=== PATIENT | male | born 1940 | race Caucasian/White ===

== ENCOUNTER 2018-09-09 19:45 | Inpatient (IN) | payer MEDICARE ==
[~2018-09-09] VITALS: Ht 172.7 cm; Wt 75.8 kg
[~2018-09-09 19:45] MED LIST: HCTZ25T PO; LISI-600 PO; WARF5TAB76 PO
[2018-09-09 20:16] LABS: BASOPHILS % (AUTO) 0.4 % (0-1); EOSINOPHILS # (AUTO) 0.2 X10'3 (0-0.9); EOSINOPHILS % (AUTO) 2.4 % (0-6); LYMPHOCYTES # (AUTO) 1.5 X10'3 (1.1-4.8); LYMPHOCYTES % (AUTO) 22.9 % (21-51); MONOCYTES # (AUTO) 0.7 X10'3 (0-0.9); MONOCYTES % (AUTO) 10.1 % (2-12); NEUTROPHILS % (AUTO) 64.2 % (42-75)
[2018-09-09 20:25] LABS: ALANINE AMINOTRANSFERASE 25 U/L (12-78); ALBUMIN 3.7 G/DL (3.4-5.0); ALKALINE PHOSPHATASE 119 IU/L (46-116); ANION GAP 10 (8-16); ASPARTATE AMINO TRANSFERASE 29 U/L (10-37); BILIRUBIN,TOTAL 0.9 MG/DL (0.1-1.0); BLOOD UREA NITROGEN 12 MG/DL (7-18); BUN/CREATININE RATIO 14.1 (5.4-32.0); CALCIUM 9.2 MG/DL (8.5-10.1); CHLORIDE 101 MMOL/L (99-107); CREATININE 0.85 MG/DL (0.60-1.10); GLUCOSE 110 MG/DL (70-104); POTASSIUM 3.8 MMOL/L (3.5-5.1); SODIUM 139 MMOL/L (135-145); TOTAL CARBON DIOXIDE 27.9 MMOL/L (24-32); TOTAL PROTEIN 7.5 G/DL (6.4-8.2); eGFR 87 ML/MIN
[2018-09-09 20:28] LABS: INR 3.3 INR; PROTHROMBIN TIME 31.6 SECONDS (9.0-12.0)
[2018-09-09 20:29] LABS: PARTIAL THROMBOPLASTIN TIME 49 SECONDS (22-32)
[2018-09-09 20:42] LABS: HEMATOCRIT 49.2 % (42.0-52.0); HEMOGLOBIN 15.8 g/dl (14.0-17.9); MEAN CORPUSCULAR HEMOGLOBIN 29.9 PG (27.0-31.0); MEAN CORPUSCULAR HGB CONC 32.2 % (33.0-36.5); PLATELET COUNT 205 X10'3 (140-440); RED BLOOD COUNT 5.29 X10'6 (4.70-6.10)
[2018-09-09] MEDS ORDERED: aspirin 325mg tablet PO ONE (21:30)
[2018-09-09] MEDS ORDERED: WARF5TAB PO (21:50)
[2018-09-09] MEDS ORDERED: hydrALAZINE 20mg/ml inj. IV ONE (21:55)
[2018-09-10] VITALS (7 sets, daily range): BP systolic 130–155; BP diastolic 73–97
[2018-09-10] MEDS ORDERED: acetaminophen 325mg tablet PO PRN (01:00)
[2018-09-10] MEDS ORDERED: magnesium hydroxide 30ml (MOM) UD suspension PO PRN (01:00)
[2018-09-10] MEDS ORDERED: ondansetron/PF 4mg/2ml inj IV PRN (01:00)
[2018-09-10] MEDS ORDERED: mag hydrox/Alum hydrox/simeth 30ml oral suspension PO PRN (01:00)
[2018-09-10] MEDS ORDERED: LORazepam 2 mg/ml vial IV PRN ×2 (01:05→10:30)
--- NOTE | 2018-09-10 02:36 | NUR ---
lab at bedside for 6hr trop
[2018-09-10 03:05] LABS: INR 3.3 INR
--- NOTE | 2018-09-10 03:21 | NUR ---
md omalley aware of pts elevated 6hr trop - he wants the AM Norvasc given now. Verbal order put in for dose to be given now
[2018-09-10] MEDS ORDERED: amLODIPine 5mg tablet PO ONE (03:25)
--- NOTE | 2018-09-10 05:43 | NUR ---
PT HAS BEEN SLEEPING FOR APPROX PAST 2 HRS. HE REMAINS ON BEDSIDE MONITORING EQUIPMENT. NO DISTRESS NOTED. WILL CONTINUE TO MONITOR.
[2018-09-10] MEDS ORDERED: warfarin 5mg tablet PO SCH (08:00)
[2018-09-10] MEDS ORDERED: amLODIPine 5mg tablet PO SCH (08:00)
--- NOTE | 2018-09-10 08:40 | NUR ---
PT BEING SEEN BY HOSPITALIST DR. HILL AT [facility].
--- NOTE | 2018-09-10 08:49 | NUR ---
BREAKFAST TRAY SET UP FOR PT, PT CURRENTLY EATING
--- NOTE | 2018-09-10 09:39 | NUR ---
PT MOVED FROM BED 17 TO BED 6, RECEIVED REPORT FROM QUINTIN RN, HOSPITIAL SERGIO TO BE PAGED DUE TO RAISING TROPONIN 7.33
--- NOTE | 2018-09-10 09:41 | NUR ---
TROPONIN 7.33,PAGED DR. HILL.
--- NOTE | 2018-09-10 09:48 | NUR ---
RECEIVED VERAL ORDERS FROM DR MEZA FOR VIT K NOW AND PT/INR 1400, ORDERS ALREADY IN SYSTEM FROM OTHER PROVIDER, DR MEZA AT BEDSIDE FOR EVALUATION NOW.
--- NOTE | 2018-09-10 09:55 | NUR ---
DR MEZA AND SHEFALI ELASTIC ASSEMBLER AT BEDSIDE FOR EVAL NOW, VERBAL CONFIRMATION TO GIVE DOSE VIT K NOW AND WILL SPEAK WITH DAUGHTER ABOUT PLAN OTHER ORDERS TO FOLLOW AFTER SPEAKING WITH FAMILY
[2018-09-10] MEDS ORDERED: clopidogrel 300mg tablet PO ONE (10:15)
[2018-09-10] MEDS ORDERED: phytonadione inj. 5 MG in normal saline 100ml IV soln 99.5 ML IV ONE (10:15)
[2018-09-10] MEDS: isosorbide mononitrate 30mg tab.SR.24H PO SCH (10:25)
[2018-09-10] MEDS: carVEDilol 3.125mg tablet PO SCH ×3 (10:25→22:59)
[2018-09-10] MEDS: atorvastatin 20mg tablet PO SCH (10:25)
[2018-09-10] MEDS ORDERED: phytonadione inj. 10 MG in normal saline 100ml IV soln 99 ML IV ONE (10:30)
[2018-09-10] MEDS ORDERED: morphine 2 MG/ML inj. syringe IV PRN (10:45)
--- NOTE | 2018-09-10 12:36 | NUR ---
pt arrived from ER. Oriented to room, tele box applied, pt assisted to restroom. Two RN skin check complete. Pt has no wounds.
[2018-09-10 13:55] LABS: BASOPHILS % (AUTO) 0.4 % (0-1); EOSINOPHILS # (AUTO) 0.1 X10'3 (0-0.9); EOSINOPHILS % (AUTO) 1.2 % (0-6); HEMATOCRIT 45.5 % (42.0-52.0); HEMOGLOBIN 14.8 g/dl (14.0-17.9); LYMPHOCYTES # (AUTO) 0.9 X10'3 (1.1-4.8); LYMPHOCYTES % (AUTO) 12.9 % (21-51); MEAN CORPUSCULAR HEMOGLOBIN 29.9 PG (27.0-31.0); MEAN CORPUSCULAR HGB CONC 32.5 % (33.0-36.5); MONOCYTES # (AUTO) 0.6 X10'3 (0-0.9); MONOCYTES % (AUTO) 8.8 % (2-12); NEUTROPHILS # (AUTO) 5.2 X10'3 (1.8-7.7); NEUTROPHILS % (AUTO) 76.7 % (42-75); PLATELET COUNT 194 X10'3 (140-440); RED BLOOD COUNT 4.95 X10'6 (4.70-6.10); RED CELL DISTRIBUTION WIDTH 13.3 % (11.5-14.5); WHITE BLOOD COUNT 6.8 X10'3 (4.5-11.0)
[2018-09-10 13:58] LABS: INR 2.4 INR; PROTHROMBIN TIME 23.4 SECONDS (9.0-12.0)
[2018-09-10 14:00] LABS: ALANINE AMINOTRANSFERASE 26 U/L (12-78); ALBUMIN 3.4 G/DL (3.4-5.0); ALKALINE PHOSPHATASE 107 IU/L (46-116); ANION GAP 9 (8-16); ASPARTATE AMINO TRANSFERASE 46 U/L (10-37); BILIRUBIN,TOTAL 1.2 MG/DL (0.1-1.0); BLOOD UREA NITROGEN 11 MG/DL (7-18); BUN/CREATININE RATIO 14.1 (5.4-32.0); CALCIUM 8.8 MG/DL (8.5-10.1); CHLORIDE 104 MMOL/L (99-107); CREATININE 0.78 MG/DL (0.60-1.10); GLUCOSE 114 MG/DL (70-104); POTASSIUM 3.9 MMOL/L (3.5-5.1); SODIUM 140 MMOL/L (135-145); TOTAL CARBON DIOXIDE 26.8 MMOL/L (24-32); TOTAL PROTEIN 6.9 G/DL (6.4-8.2); eGFR > 90 ML/MIN
[2018-09-10 14:04] LABS: CHOL/HDL RATIO 6.3 (0.00-4.99); CHOLESTEROL 183 MG/DL (0-200); CREATINE KINASE 184 U/L (39-308); HDL CHOLESTEROL 29 MG/DL (35-60); LDL CHOLESTEROL 118 MG/DL (50-100); MAGNESIUM 1.9 MG/DL (1.5-2.4); TRIGLYCERIDES 185 MG/DL (20-135)
--- NOTE | 2018-09-10 18:10 | NUR ---
Patient in room MED 314. I have received report from Art and had the opportunity to ask questions and assume patient care.
[2018-09-10] MEDS ORDERED: heparin 25,000 UNIT/250ml bag 250 ML IV SCH (18:42)
[2018-09-10] MEDS ORDERED: diphenhydrAMINE 25mg capsule PO ONE (18:45)
[2018-09-10] MEDS ORDERED: acetaminophen 325mg tablet PO ONE (18:45)
[2018-09-10] MEDS ORDERED: heparin 10,000 units/1 ML INJ IV PRN (18:45)
[2018-09-10 19:43] LABS: PARTIAL THROMBOPLASTIN TIME 39 SECONDS (22-32)
[2018-09-10] MEDS ORDERED: warfarin 5mg tablet PO ONE (21:00)
[2018-09-11] VITALS (10 sets, daily range): BP systolic 134–158; BP diastolic 78–105
[2018-09-11 01:50] LABS: INR 1.5 INR; PROTHROMBIN TIME 14.5 SECONDS (9.0-12.0)
--- NOTE | 2018-09-11 02:28 | NUR ---
Patient found on hands and knees on the floor at bedside, tabs alarm sounding. Patient redirected and head to toe assessment completed. MD notified within 30 minutes
[2018-09-11] MEDS ORDERED: LIDOcaine 1% (10mg/ml)w/preservative injection 20ml MDV ONE (05:56)
[2018-09-11] MEDS ORDERED: heparin 1,000unit/ml 10ml vial 10 ML ONE (05:56)
[2018-09-11] MEDS ORDERED: nitroGLYCERIN-Tridil 50MG/D5W 250 ML IV ONE (05:56)
[2018-09-11] MEDS ORDERED: fentaNYL/PF 50MCG/1 ML 2ML syringe ONE (05:56)
[2018-09-11] MEDS ORDERED: iohexol 350 MG/ML 50ML vial IV ONE (05:56)
[2018-09-11] MEDS ORDERED: iohexol 350MG/ML 100ml bottle IV ONE ×2 (05:56→07:10)
[2018-09-11] MEDS ORDERED: midazolam 2 mg/2 ml injection ONE (05:56)
--- NOTE | 2018-09-11 06:38 | NUR ---
Pt to sugar laboratory assistant
[2018-09-11] MEDS ORDERED: verapamil 2.5 mg/ml inj IV ONE (07:21)
[2018-09-11] MEDS: aspirin 81mg tablet.DR PO SCH ×2 (08:30→10:25)
--- NOTE | 2018-09-11 09:26 | NUR ---
Pt returned from golf course laborer. Pt has femstop and wrist band in place. 3mL of air released. Sight monitored, no sign of bleeding.
[2018-09-11] MEDS: isosorbide mononitrate 30mg tab.SR.24H PO SCH (10:25)
[2018-09-11] MEDS: clopidogrel 75mg tablet PO SCH (10:25)
[2018-09-11] MEDS: atorvastatin 20mg tablet PO SCH (10:26)
[2018-09-11] MEDS: carVEDilol 3.125mg tablet PO SCH ×2 (10:26→20:40)
[2018-09-11 10:47] LABS: INR 1.4 INR; PROTHROMBIN TIME 13.8 SECONDS (9.0-12.0)
[2018-09-11] MEDS ORDERED: lisinopril 5mg tablet PO SCH (10:49)
[2018-09-11] MEDS ORDERED: OXAZEpam 15mg capsule PO PRN (10:55)
[2018-09-11] MEDS ORDERED: cyclobenzaprine 10mg tablet PO PRN (10:55)
[2018-09-11] MEDS ORDERED: magnesium hydroxide 30ml (MOM) UD suspension PO PRN (10:55)
[2018-09-11] MEDS ORDERED: acetaminophen 325mg tablet PO PRN (10:55)
[2018-09-11] MEDS ORDERED: HYDROcodone/acetaminophen 10/325mg tab PO PRN ×2 (10:55)
--- NOTE | 2018-09-11 10:56 | NUR ---
corporate technical recruiter in room prepping pt to start study.
[2018-09-11] MEDS ORDERED: proCHLORperazine 10 MG/2 ml inj IV PRN (11:00)
--- NOTE | 2018-09-11 11:25 | NUR ---
PAGER ID: [phone] MESSAGE: Dr. Leslie, the eeg test has been done for pt Lack. It will be submitted for reading.
[2018-09-11 12:27] LABS: ALBUMIN 3.3 G/DL (3.4-5.0); ANION GAP 8 (8-16); BLOOD UREA NITROGEN 12 MG/DL (7-18); BUN/CREATININE RATIO 16.2 (5.4-32.0); CALCIUM 8.2 MG/DL (8.5-10.1); CHLORIDE 103 MMOL/L (99-107); CREATININE 0.74 MG/DL (0.60-1.10); GLUCOSE 135 MG/DL (70-104); SODIUM 137 MMOL/L (135-145); TOTAL CARBON DIOXIDE 25.8 MMOL/L (24-32); eGFR > 90 ML/MIN
[2018-09-11 12:45] LABS: POTASSIUM 3.7 MMOL/L (3.5-5.1)
--- NOTE | 2018-09-11 13:27 | NUR ---
Spoke with Dr. Collins, he said to start the hep gtt at 1000. Further he said if the pt developes a hematoma, we are to replace the femstop.
--- NOTE | 2018-09-11 13:46 | NUR ---
Pt reminded to lay flat
[2018-09-11] MEDS ORDERED: heparin 10,000 units/1 ML INJ IV PRN (15:00)
[2018-09-11] MEDS: heparin 25,000 UNIT/250ml bag 250 ML IV SCH (15:13)
[2018-09-11] MEDS ORDERED: temazepam 15mg capsule PO PRN (16:35)
[2018-09-11] MEDS: docusate sod 100mg capsule PO SCH (20:00)
[2018-09-11 20:57] LABS: BASOPHILS % (AUTO) 0.4 % (0-1); EOSINOPHILS # (AUTO) 0.1 X10'3 (0-0.9); EOSINOPHILS % (AUTO) 1.5 % (0-6); HEMATOCRIT 41.8 % (42.0-52.0); HEMOGLOBIN 13.8 g/dl (14.0-17.9); LYMPHOCYTES # (AUTO) 1.2 X10'3 (1.1-4.8); LYMPHOCYTES % (AUTO) 14.3 % (21-51); MEAN CORPUSCULAR HEMOGLOBIN 30.4 PG (27.0-31.0); MEAN CORPUSCULAR HGB CONC 32.8 % (33.0-36.5); MEAN CORPUSCULAR VOLUME 92.6 FL (78-98); MONOCYTES # (AUTO) 0.7 X10'3 (0-0.9); MONOCYTES % (AUTO) 8.1 % (2-12); NEUTROPHILS # (AUTO) 6.4 X10'3 (1.8-7.7); NEUTROPHILS % (AUTO) 75.7 % (42-75); PLATELET COUNT 170 X10'3 (140-440); RED BLOOD COUNT 4.52 X10'6 (4.70-6.10); RED CELL DISTRIBUTION WIDTH 13.1 % (11.5-14.5); WHITE BLOOD COUNT 8.4 X10'3 (4.5-11.0)
[2018-09-11] MEDS ORDERED: warfarin 7.5mg tablet PO ONE (21:00)
[2018-09-11 21:11] LABS: ALANINE AMINOTRANSFERASE 21 U/L (12-78); ALBUMIN 3.2 G/DL (3.4-5.0); ALKALINE PHOSPHATASE 103 IU/L (46-116); ANION GAP 10 (8-16); ASPARTATE AMINO TRANSFERASE 31 U/L (10-37); BLOOD UREA NITROGEN 12 MG/DL (7-18); CALCIUM 8.3 MG/DL (8.5-10.1); CHLORIDE 105 MMOL/L (99-107); CREATININE 0.86 MG/DL (0.60-1.10); GLUCOSE 108 MG/DL (70-104); POTASSIUM 3.6 MMOL/L (3.5-5.1); SODIUM 138 MMOL/L (135-145); TOTAL PROTEIN 6.5 G/DL (6.4-8.2); eGFR 86 ML/MIN
[2018-09-11 21:19] LABS: TROPONIN I 1.13 NG/ML (0.0-0.05)
[2018-09-12 02:00] VITALS: BP 117/80
[2018-09-12 06:00] VITALS: BP 137/88
--- NOTE | 2018-09-12 06:30 | NUR ---
Patient in room MED 312. I have received report from Judson WRIGHT and had the opportunity to ask questions and assume patient care.
[2018-09-12 07:01] LABS: ALANINE AMINOTRANSFERASE 19 U/L (12-78); ALBUMIN 3.1 G/DL (3.4-5.0); ALBUMIN/GLOBULIN RATIO 0.9 (1.1-1.5); ALKALINE PHOSPHATASE 99 IU/L (46-116); ANION GAP 10 (8-16); ASPARTATE AMINO TRANSFERASE 29 U/L (10-37); BLOOD UREA NITROGEN 12 MG/DL (7-18); BUN/CREATININE RATIO 14.5 (5.4-32.0); CALCIUM 8.3 MG/DL (8.5-10.1); CHLORIDE 105 MMOL/L (99-107); CREATININE 0.83 MG/DL (0.60-1.10); GLUCOSE 96 MG/DL (70-104); POTASSIUM 3.4 MMOL/L (3.5-5.1); SODIUM 138 MMOL/L (135-145); TOTAL CARBON DIOXIDE 23.2 MMOL/L (24-32); TOTAL PROTEIN 6.5 G/DL (6.4-8.2); eGFR 90 ML/MIN
[2018-09-12 07:10] LABS: BASOPHILS % (AUTO) 0.4 % (0-1); EOSINOPHILS # (AUTO) 0.1 X10'3 (0-0.9); EOSINOPHILS % (AUTO) 1.7 % (0-6); HEMATOCRIT 41.5 % (42.0-52.0); HEMOGLOBIN 13.9 g/dl (14.0-17.9); INR 1.2 INR; LYMPHOCYTES # (AUTO) 1.3 X10'3 (1.1-4.8); LYMPHOCYTES % (AUTO) 17.6 % (21-51); MEAN CORPUSCULAR HEMOGLOBIN 31.3 PG (27.0-31.0); MEAN CORPUSCULAR HGB CONC 33.5 % (33.0-36.5); MEAN CORPUSCULAR VOLUME 93.2 FL (78-98); MEAN PLATELET VOLUME 10.7 FL (7.4-10.4); MONOCYTES # (AUTO) 0.7 X10'3 (0-0.9); MONOCYTES % (AUTO) 9.6 % (2-12); NEUTROPHILS # (AUTO) 5.2 X10'3 (1.8-7.7); NEUTROPHILS % (AUTO) 70.7 % (42-75); PLATELET COUNT 160 X10'3 (140-440); PROTHROMBIN TIME 11.9 SECONDS (9.0-12.0); RED BLOOD COUNT 4.46 X10'6 (4.70-6.10); RED CELL DISTRIBUTION WIDTH 13.4 % (11.5-14.5); WHITE BLOOD COUNT 7.3 X10'3 (4.5-11.0)
[2018-09-12] MEDS: docusate sod 100mg capsule PO SCH ×2 (08:00→18:48)
[2018-09-12] MEDS: carVEDilol 3.125mg tablet PO SCH ×2 (08:34→20:53)
[2018-09-12] MEDS: isosorbide mononitrate 30mg tab.SR.24H PO SCH (08:34)
[2018-09-12] MEDS: atorvastatin 20mg tablet PO SCH (08:34)
[2018-09-12] MEDS: clopidogrel 75mg tablet PO SCH (08:34)
[2018-09-12] MEDS: aspirin 81mg tablet.DR PO SCH (08:34)
[2018-09-12] MEDS: lisinopril 5mg tablet PO SCH (08:35)
[2018-09-12 11:00] VITALS: BP 104/65
[2018-09-12 15:00] VITALS: BP 117/67
[2018-09-12] MEDS: heparin 25,000 UNIT/250ml bag 250 ML IV SCH (16:47)
--- NOTE | 2018-09-12 18:29 | NUR ---
Problems reprioritized. Patient report given, questions answered & plan of care reviewed with Alban WRIGHT.
--- NOTE | 2018-09-12 18:30 | NUR ---
Patient in room MED 312. I have received report from KYLE Cassidy and had the opportunity to ask questions and assume patient care.
[2018-09-12 19:00] VITALS: BP 135/75
[2018-09-12] MEDS ORDERED: potassium Cl 20 mEq SR tablet PO PRN (19:00)
[2018-09-12] MEDS: potassium Cl 20 mEq SR tablet PO PRN (20:53)
[2018-09-12] MEDS ORDERED: warfarin 5mg tablet PO ONE (21:00)
[2018-09-12 23:00] VITALS: BP 148/95
[2018-09-13] MEDS: potassium Cl 20 mEq SR tablet PO PRN (02:58)
[2018-09-13 03:00] VITALS: BP 144/84
[2018-09-13 06:00] VITALS: BP 158/96
--- NOTE | 2018-09-13 06:00 | NUR ---
Patient in room MED 312. I have received report from KYLE Phoenix and had the opportunity to ask questions and assume patient care.
[2018-09-13 07:02] LABS: ALANINE AMINOTRANSFERASE 23 U/L (12-78); ALBUMIN 3.3 G/DL (3.4-5.0); ALKALINE PHOSPHATASE 102 IU/L (46-116); ANION GAP 12 (8-16); ASPARTATE AMINO TRANSFERASE 32 U/L (10-37); BILIRUBIN,TOTAL 1.5 MG/DL (0.1-1.0); BLOOD UREA NITROGEN 15 MG/DL (7-18); BUN/CREATININE RATIO 18.8 (5.4-32.0); CALCIUM 8.6 MG/DL (8.5-10.1); CHLORIDE 105 MMOL/L (99-107); GLUCOSE 97 MG/DL (70-104); POTASSIUM 3.5 MMOL/L (3.5-5.1); SODIUM 140 MMOL/L (135-145); TOTAL CARBON DIOXIDE 22.8 MMOL/L (24-32); TOTAL PROTEIN 6.7 G/DL (6.4-8.2); eGFR > 90 ML/MIN
--- NOTE | 2018-09-13 07:03 | NUR ---
Problems reprioritized. Patient report given, questions answered & plan of care reviewed with KYLE Capellan.
[2018-09-13 07:09] LABS: BASOPHILS % (AUTO) 0.3 % (0-1); EOSINOPHILS # (AUTO) 0.2 X10'3 (0-0.9); EOSINOPHILS % (AUTO) 2.2 % (0-6); HEMATOCRIT 43.1 % (42.0-52.0); HEMOGLOBIN 14.2 g/dl (14.0-17.9); LYMPHOCYTES # (AUTO) 1.4 X10'3 (1.1-4.8); LYMPHOCYTES % (AUTO) 18.7 % (21-51); MEAN CORPUSCULAR HEMOGLOBIN 30.6 PG (27.0-31.0); MEAN PLATELET VOLUME 11.1 FL (7.4-10.4); MONOCYTES # (AUTO) 0.7 X10'3 (0-0.9); NEUTROPHILS # (AUTO) 5.2 X10'3 (1.8-7.7); NEUTROPHILS % (AUTO) 69.8 % (42-75); PLATELET COUNT 160 X10'3 (140-440); RED BLOOD COUNT 4.64 X10'6 (4.70-6.10); RED CELL DISTRIBUTION WIDTH 13.7 % (11.5-14.5); WHITE BLOOD COUNT 7.5 X10'3 (4.5-11.0)
[2018-09-13 07:11] LABS: INR 1.2 INR; PROTHROMBIN TIME 12.1 SECONDS (9.0-12.0)
[2018-09-13] MEDS: heparin 25,000 UNIT/250ml bag 250 ML IV SCH ×2 (07:31→15:42)
[2018-09-13] MEDS ORDERED: warfarin 7.5mg tablet PO ONE (08:45)
[2018-09-13] MEDS: docusate sod 100mg capsule PO SCH ×2 (09:10→20:27)
[2018-09-13] MEDS: carVEDilol 3.125mg tablet PO SCH ×2 (09:10→20:27)
[2018-09-13] MEDS: clopidogrel 75mg tablet PO SCH (09:11)
[2018-09-13] MEDS: isosorbide mononitrate 30mg tab.SR.24H PO SCH (09:11)
[2018-09-13] MEDS: lisinopril 5mg tablet PO SCH (09:12)
[2018-09-13] MEDS: aspirin 81mg tablet.DR PO SCH (09:14)
[2018-09-13] MEDS: atorvastatin 20mg tablet PO SCH (09:15)
--- NOTE | 2018-09-13 10:57 | NUR ---
[facility], 2127-ROOM 312, Patient: Deja Pino. Family is preparing for d/c. They were told he would go home today. Would like update on plan for patient discharge. Thank you, KYLE Guido
[2018-09-13 11:00] VITALS: BP 123/76
[2018-09-13 13:39] LABS: INR 1.2 INR; PROTHROMBIN TIME 12.4 SECONDS (9.0-12.0)
[2018-09-13 15:00] VITALS: BP 99/62
--- NOTE | 2018-09-13 15:23 | NUR ---
PAGED CASE MANAGEMENT "RE: LACK, IN 312, PATIENT'S DAUGHTER IS HERE AND HAS CONCERNS ABOUT HOME CARE AFTER DISCHARGE. CAN YOU COME CHAT WITH HER ABOUT OPTIONS? THANK YOU, ESME SANTOS [phone]"
--- NOTE | 2018-09-13 17:46 | NUR ---
pt asking for sleep aid paged Dr. Arcos- "RE: LACK, IN 312. Pt says he can't sleep in the hospital, is he able to have an order for Benadryl as a sleep aid tonight? thank you, Reyna alarcon [phone]"
[2018-09-13 18:00] VITALS: BP 124/68
--- NOTE | 2018-09-13 18:21 | NUR ---
Problems reprioritized. Patient report given, questions answered & plan of care reviewed with KYLE Stone.
[2018-09-13] MEDS ORDERED: temazepam 15mg capsule PO PRN (20:00)
[2018-09-13 20:28] LABS: INR 1.3 INR; PROTHROMBIN TIME 12.9 SECONDS (9.0-12.0)
[2018-09-13 22:00] VITALS: BP 127/78
[2018-09-14 02:00] VITALS: BP 141/97
[2018-09-14 02:12] LABS: BASOPHILS % (AUTO) 0.4 % (0-1); EOSINOPHILS # (AUTO) 0.2 X10'3 (0-0.9); LYMPHOCYTES # (AUTO) 1.2 X10'3 (1.1-4.8)
[2018-09-14 02:16] LABS: EOSINOPHILS % (AUTO) 4.3 % (0-6); HEMATOCRIT 39.2 % (42.0-52.0); HEMOGLOBIN 12.9 g/dl (14.0-17.9); MEAN CORPUSCULAR HEMOGLOBIN 30.7 PG (27.0-31.0); MEAN CORPUSCULAR VOLUME 93.1 FL (78-98); MEAN PLATELET VOLUME 9.8 FL (7.4-10.4); MONOCYTES # (AUTO) 0.6 X10'3 (0-0.9); MONOCYTES % (AUTO) 11.6 % (2-12); NEUTROPHILS % (AUTO) 59.7 % (42-75); PLATELET COUNT 137 X10'3 (140-440); RED BLOOD COUNT 4.21 X10'6 (4.70-6.10); RED CELL DISTRIBUTION WIDTH 13.5 % (11.5-14.5)
[2018-09-14 02:21] LABS: ALANINE AMINOTRANSFERASE 27 U/L (12-78); ALBUMIN/GLOBULIN RATIO 0.9 (1.1-1.5); ALKALINE PHOSPHATASE 103 IU/L (46-116); ANION GAP 13 (8-16); ASPARTATE AMINO TRANSFERASE 41 U/L (10-37); BILIRUBIN,TOTAL 0.8 MG/DL (0.1-1.0); BLOOD UREA NITROGEN 16 MG/DL (7-18); BUN/CREATININE RATIO 20.5 (5.4-32.0); CALCIUM 8.6 MG/DL (8.5-10.1); CHLORIDE 105 MMOL/L (99-107); CREATININE 0.78 MG/DL (0.60-1.10); GLUCOSE 113 MG/DL (70-104); POTASSIUM 3.2 MMOL/L (3.5-5.1); SODIUM 140 MMOL/L (135-145); TOTAL CARBON DIOXIDE 22.4 MMOL/L (24-32); TOTAL PROTEIN 6.3 G/DL (6.4-8.2); eGFR > 90 ML/MIN
[2018-09-14 02:31] LABS: INR 1.2 INR; PROTHROMBIN TIME 14.2 SECONDS (9.0-12.0)
[2018-09-14] MEDS: heparin 25,000 UNIT/250ml bag 250 ML IV SCH (02:58)
--- NOTE | 2018-09-14 06:00 | NUR ---
Patient in room MED 312. I have received report from KYLE Stone and had the opportunity to ask questions and assume patient care.
--- NOTE | 2018-09-14 06:25 | NUR ---
Problems reprioritized. Patient report given, questions answered & plan of care reviewed with Pradip WRIGHT.
[2018-09-14 07:00] VITALS: BP 103/55
[2018-09-14] MEDS ORDERED: potassium Cl 20 mEq SR tablet PO SCH (08:45)
[2018-09-14] MEDS ORDERED: ATOR20TA66 PO (08:50)
[2018-09-14] MEDS ORDERED: WARF10TA50 PO (08:50)
[2018-09-14] MEDS ORDERED: ENOX80SY7 SUBCUT (08:50)
[2018-09-14] MEDS: docusate sod 100mg capsule PO SCH (09:44)
[2018-09-14] MEDS: carVEDilol 3.125mg tablet PO SCH (09:45)
[2018-09-14] MEDS: isosorbide mononitrate 30mg tab.SR.24H PO SCH (09:45)
[2018-09-14] MEDS: aspirin 81mg tablet.DR PO SCH (09:47)
[2018-09-14] MEDS: atorvastatin 20mg tablet PO SCH (09:48)
[2018-09-14] MEDS: lisinopril 5mg tablet PO SCH (09:48)
[2018-09-14] MEDS: clopidogrel 75mg tablet PO SCH (09:48)
[2018-09-14] MEDS ORDERED: warfarin 10mg tablet PO ONE (21:00)
== END 2018-09-14 10:30 | disposition home or self-care (01) | DRG 100 ==
LOC: ER 19:45 → ED HOLD 09-10 00:56 → EDBEDREQ 09-10 11:55 → MED 3N 09-10 12:15
PROVIDERS: ADMIT Internal Medicine; ATTEND Internal Medicine
PROC: 30233K1 Transfusion of Nonautologous Frozen Plasma into Peripheral Vein, Percutaneous Approach (ICD-10-PCS; 2018-09-10)
PROC: 4A00X4Z Measurement of Central Nervous Electrical Activity, External Approach (ICD-10-PCS; principal; 2018-09-11)
PROC: 4A023N7 Measurement of Cardiac Sampling and Pressure, Left Heart, Percutaneous Approach (ICD-10-PCS; 2018-09-12)
PROC: B3101ZZ Fluoroscopy of Thoracic Aorta using Low Osmolar Contrast (ICD-10-PCS; 2018-09-12)
PROC: B2111ZZ Fluoroscopy of Multiple Coronary Arteries using Low Osmolar Contrast (ICD-10-PCS; 2018-09-12)
DX: G40.909 Epilepsy, unspecified, not intractable, without status epilepticus (principal); I21.4 Non-ST elevation (NSTEMI) myocardial infarction; I50.43 Acute on chronic combined systolic (congestive) and diastolic (congestive) heart failure; D68.9 Coagulation defect, unspecified; I69.354 Hemiplegia and hemiparesis following cerebral infarction affecting left non-dominant side; I25.10 Atherosclerotic heart disease of native coronary artery without angina pectoris; I11.0 Hypertensive heart disease with heart failure; I48.2 Chronic atrial fibrillation; E78.00 Pure hypercholesterolemia, unspecified; E78.5 Hyperlipidemia, unspecified; Z87.891 Personal history of nicotine dependence; Z95.0 Presence of cardiac pacemaker; Z88.8 Allergy status to other drugs, medicaments and biological substances; Z79.01 Long term (current) use of anticoagulants; Z79.899 Other long term (current) drug therapy; Z95.2 Presence of prosthetic heart valve
CPT/HCPCS: 36415; 70450; 71045; 75630; 80048; 80053; 80061; 82550; 83735; 84484; 85025; 85347; 85610; 85730; 86885; 86900; 86901; 87070; 93005; 93306; 93454; 93567; 95816; 96374; 97110; 97116; 97162; 97530; 99152; 99153; 99285; A4620; A6257; C1769; C1894; G0378; J0360; J1644; J2001; J2060; J2250; J3010; J3430; J3490; J7030; P9059; Q0163; Q9967

== ENCOUNTER 2019-06-28 23:33 | Inpatient (IN) | payer MEDICARE ==
[~2019-06-28] VITALS: Ht 177.8 cm; Wt 70.0 kg
[~2019-06-28 23:33] MED LIST changes: +ATOR20TA66 PO; +ENOX80SY7 SUBCUT; -HCTZ25T PO; -LISI-600 PO; +WARF10TA50 PO; -WARF5TAB76 PO
[2019-06-29 00:13] LABS: BASOPHILS % (AUTO) 0.5 % (0-1); EOSINOPHILS # (AUTO) 0.2 X10'3 (0-0.9); HEMATOCRIT 43.8 % (42.0-52.0); HEMOGLOBIN 14.7 g/dl (14.0-17.9); LYMPHOCYTES # (AUTO) 1.3 X10'3 (1.1-4.8); MONOCYTES # (AUTO) 0.6 X10'3 (0-0.9); NEUTROPHILS # (AUTO) 5.7 X10'3 (1.8-7.7)
[2019-06-29 00:15] LABS: EOSINOPHILS % (AUTO) 2.5 % (0-6); LYMPHOCYTES % (AUTO) 16.3 % (21-51); MEAN CORPUSCULAR HEMOGLOBIN 31.2 PG (27.0-31.0); MEAN CORPUSCULAR HGB CONC 33.7 g/dL (33.0-36.5); MEAN CORPUSCULAR VOLUME 92.8 FL (78-98); MEAN PLATELET VOLUME 10.4 FL (7.4-10.4); MONOCYTES % (AUTO) 8.1 % (2-12); NEUTROPHILS % (AUTO) 72.6 % (42-75); PLATELET COUNT 155 X10'3 (140-440); RED BLOOD COUNT 4.72 X10'6 (4.70-6.10); RED CELL DISTRIBUTION WIDTH 15.3 % (11.5-14.5); WHITE BLOOD COUNT 7.8 X10'3 (4.5-11.0)
[2019-06-29 00:22] LABS: PARTIAL THROMBOPLASTIN TIME 35 SECONDS (22-32)
[2019-06-29 00:25] LABS: ALANINE AMINOTRANSFERASE 22 U/L (12-78); ALBUMIN 3.4 G/DL (3.4-5.0); ALBUMIN/GLOBULIN RATIO 0.9 (1.1-1.5); ALKALINE PHOSPHATASE 166 IU/L (46-116); ANION GAP 9 (8-16); ASPARTATE AMINO TRANSFERASE 32 U/L (10-37); BILIRUBIN,TOTAL 0.8 MG/DL (0.1-1.0); BLOOD UREA NITROGEN 15 MG/DL (7-18); BUN/CREATININE RATIO 12.6 (5.4-32.0); CALCIUM 8.7 MG/DL (8.5-10.1); CHLORIDE 105 MMOL/L (99-107); CREATININE 1.19 MG/DL (0.60-1.10); GLUCOSE 93 MG/DL (70-104); POTASSIUM 3.9 MMOL/L (3.5-5.1); SODIUM 140 MMOL/L (135-145); TOTAL PROTEIN 7.4 G/DL (6.4-8.2); eGFR 59 ML/MIN
[2019-06-29 00:27] LABS: TROPONIN I 0.08 NG/ML (0.0-0.05)
[2019-06-29 00:36] LABS: LARGE PLATELETS MODERATE; PLATELET ESTIMATE NORMAL
[2019-06-29] MEDS ORDERED: COU3T PO (01:20)
[2019-06-29] MEDS ORDERED: acetaminophen 325mg tablet PO PRN (01:40)
[2019-06-29] MEDS ORDERED: ondansetron/PF 4mg/2ml inj IV PRN (01:40)
[2019-06-29] MEDS ORDERED: HYDROcodone/acetaminophen 10/325mg tab PO PRN (01:40)
[2019-06-29] MEDS ORDERED: magnesium hydroxide 30ml (MOM) UD suspension PO PRN (01:40)
[2019-06-29] MEDS ORDERED: mag hydrox/Alum hydrox/simeth 30ml oral suspension PO PRN (01:40)
--- NOTE | 2019-06-29 02:57 | NUR ---
Blood collected for 3 hr trop and taken to lab.
--- NOTE | 2019-06-29 03:50 | NUR ---
Patient in room PCU 3014. I have received report from KYLE Campo and had the opportunity to ask questions and assume patient care.
[2019-06-29 04:00] VITALS: BP 156/92
[2019-06-29] MEDS: acetaminophen 325mg tablet PO PRN ×2 (04:50→16:23)
--- NOTE | 2019-06-29 05:00 | NUR ---
Second troponin is increased from 0.08 to 0.09. Yoselin Wan will continue to monitor.
--- NOTE | 2019-06-29 05:01 | NUR ---
Patient arrived on unit at approximately 0400 via [facility], vital signs taken, MRSA swab collected, 2 RN skin check performed, DART complete. Patient belongings in closet.
--- NOTE | 2019-06-29 05:23 | NUR ---
Patient expressed to me that he would not like to be intubated if he was coded. He would like to revisit his code status with the
--- NOTE | 2019-06-29 06:14 | NUR ---
Problems reprioritized. Patient report given, questions answered & plan of care reviewed with KYLE Womack .
--- NOTE | 2019-06-29 06:19 | NUR ---
Patient in room PCU 3014. I have received report from Essence and had the opportunity to ask questions and assume patient care.
[2019-06-29 07:00] VITALS: BP_SYST 155; BP_SYST 160; BP_DIAS 74; BP_DIAS 93
[2019-06-29] MEDS ORDERED: enoxaparin 100mg/ml syringe SUBCUT SCH (08:00)
[2019-06-29 08:39] LABS: GLUCOSE, URINE NEGATIVE (Neg); KETONES,URINE TRACE mg/dl (Neg); LEUKOCYTE ESTERASE ,URINE NEGATIVE (Neg); NITRITES, URINE NEGATIVE (Neg); OCCULT BLOOD,URINE TRACE-INTACT (Neg); PH,URINE 5.5 (4.8-8.0); PROTEIN,URINE 100 mg/dl (Neg)
[2019-06-29 08:47] LABS: CLARITY,URINE SLIGHTLY CLOUDY (Clear); COLOR,URINE DARK YELLOW (Yellow); UA COLLECTION TYPE NON-SPECIFIED
[2019-06-29 08:54] LABS: BACTERIA,URINE NONE SEEN /HPF (Neg); CAL OXALATE CRYSTALS 3+ /HPF (NEGATIVE); HYALINE CASTS 0-3 /LPF (NEGATIVE); MUCUS STRANDS MODERATE /LPF (Neg); RBC,URINE 0-2 /HPF (0-2); SQUAMOUS EPITHELIAL CELL,UR FEW /LPF (FEW); WBC,URINE 0-4 /HPF (0-4)
[2019-06-29] MEDS: aspirin 81mg tablet.DR PO SCH (09:12)
[2019-06-29] MEDS: enoxaparin 30mg/0.3ml syringe SUBCUT SCH ×2 (09:13→21:16)
[2019-06-29] MEDS: enoxaparin 40mg/0.4ml syringe SQ SCH ×2 (09:19→21:16)
[2019-06-29 11:00] VITALS: BP 144/90
[2019-06-29 11:50] VITALS: BP_SYST 144; BP_SYST 155; BP_SYST 159; BP_DIAS 100; BP_DIAS 90; BP_DIAS 94
[2019-06-29] MEDS ORDERED: pneumococcal 23-VAL P-sac vacc 25 mcg/0.5ml vial IMVAC ONE (12:10)
[2019-06-29] MEDS ORDERED: FLU VACC QS 2019-20 (6 MOS UP) 60 MCG/0.5 ML VIAL IMVAC ONE (12:15)
--- NOTE | 2019-06-29 12:20 | NUR ---
Dr. Mendez notified regarding slightly elevated BP trends and orthostatic blood pressures taken this AM. also notified regarding troponin trends. No new orders noted.
[2019-06-29 18:00] VITALS: BP 171/90
--- NOTE | 2019-06-29 18:15 | NUR ---
Patient in room PCU 3014. I have received report from Elizabeth WRIGHT and had the opportunity to ask questions and assume patient care. Patient is sitting up in bed eating a bag of chips his daughter brought him. He is pleasant and has no immediate needs. Will continue to monitor.
[2019-06-29] MEDS: HYDROcodone/acetaminophen 5mg/325mg tablet PO PRN (21:15)
[2019-06-29 22:00] VITALS: BP 169/99
[2019-06-30 02:00] VITALS: BP 149/95
[2019-06-30] MEDS: HYDROcodone/acetaminophen 5mg/325mg tablet PO PRN ×2 (02:11→18:55)
[2019-06-30 03:02] LABS: BASOPHILS # (AUTO) 0.1 X10'3 (0-0.2); BASOPHILS % (AUTO) 0.7 % (0-1); EOSINOPHILS # (AUTO) 0.3 X10'3 (0-0.9); EOSINOPHILS % (AUTO) 3.2 % (0-6); HEMATOCRIT 41.1 % (42.0-52.0); HEMOGLOBIN 13.9 g/dl (14.0-17.9); LYMPHOCYTES # (AUTO) 1.4 X10'3 (1.1-4.8); LYMPHOCYTES % (AUTO) 18.1 % (21-51); MEAN CORPUSCULAR HEMOGLOBIN 31.4 PG (27.0-31.0); MEAN CORPUSCULAR HGB CONC 33.9 g/dL (33.0-36.5); MEAN CORPUSCULAR VOLUME 92.5 FL (78-98); MONOCYTES # (AUTO) 0.7 X10'3 (0-0.9); MONOCYTES % (AUTO) 8.3 % (2-12); NEUTROPHILS # (AUTO) 5.4 X10'3 (1.8-7.7); NEUTROPHILS % (AUTO) 69.7 % (42-75); PLATELET COUNT 112 X10'3 (140-440); RED BLOOD COUNT 4.45 X10'6 (4.70-6.10); RED CELL DISTRIBUTION WIDTH 15.2 % (11.5-14.5); WHITE BLOOD COUNT 7.8 X10'3 (4.5-11.0)
[2019-06-30 03:20] LABS: ANION GAP 6 (8-16); BLOOD UREA NITROGEN 18 MG/DL (7-18); BUN/CREATININE RATIO 20.2 (5.4-32.0); CALCIUM 8.8 MG/DL (8.5-10.1); CHLORIDE 105 MMOL/L (99-107); CHOL/HDL RATIO 3.8 (0.00-4.99); CHOLESTEROL 158 MG/DL (0-200); CREATININE 0.89 MG/DL (0.60-1.10); GLUCOSE 110 MG/DL (70-104); HDL CHOLESTEROL 42 MG/DL (35-60); LDL CHOLESTEROL 105 MG/DL (50-100); POTASSIUM 3.7 MMOL/L (3.5-5.1); SODIUM 138 MMOL/L (135-145); TOTAL CARBON DIOXIDE 27.4 MMOL/L (24-32); TRIGLYCERIDES 110 MG/DL (20-135); eGFR 82 ML/MIN
[2019-06-30 04:40] LABS: LARGE PLATELETS FEW; PLATELET ESTIMATE DECREASED
[2019-06-30 05:00] LABS: PARTIAL THROMBOPLASTIN TIME 43 SECONDS (22-32)
--- NOTE | 2019-06-30 06:00 | NUR ---
Patient in room PCU 3014. I have received report from Felisha and had the opportunity to ask questions and assume patient care.
[2019-06-30 07:00] VITALS: BP 164/90
[2019-06-30] MEDS: enoxaparin 40mg/0.4ml syringe SQ SCH ×2 (08:31→20:07)
[2019-06-30] MEDS: aspirin 81mg tablet.DR PO SCH (08:31)
[2019-06-30] MEDS: enoxaparin 30mg/0.3ml syringe SUBCUT SCH ×2 (08:32→20:06)
--- NOTE | 2019-06-30 09:40 | NUR ---
Patient in room PCU 3014. I have received report from Shanta WRIGHT and had the opportunity to ask questions and assume patient care.
--- NOTE | 2019-06-30 09:40 | NUR ---
Problems reprioritized. Patient report given, questions answered & plan of care reviewed with Evy.
[2019-06-30 11:00] VITALS: BP 137/88
[2019-06-30 15:00] VITALS: BP 134/78
[2019-06-30 18:00] VITALS: BP 169/99
--- NOTE | 2019-06-30 18:15 | NUR ---
Patient in room PCU 3014. I have received report from Evy WRIGHT and had the opportunity to ask questions and assume patient care. Patient is resting in bed, will continue to monitor.
--- NOTE | 2019-06-30 18:42 | NUR ---
Problems reprioritized. Patient report given, questions answered & plan of care reviewed with Felisha WRIGHT.
[2019-06-30] MEDS ORDERED: warfarin 3mg tablet PO ONE (21:00)
[2019-06-30 22:00] VITALS: BP 170/96
[2019-07-01] MEDS: HYDROcodone/acetaminophen 5mg/325mg tablet PO PRN ×4 (01:03→20:49)
[2019-07-01 02:00] VITALS: BP 151/98
[2019-07-01 05:39] LABS: BASOPHILS # (AUTO) 0.1 X10'3 (0-0.2); BASOPHILS % (AUTO) 1.1 % (0-1); EOSINOPHILS # (AUTO) 0.2 X10'3 (0-0.9); HEMATOCRIT 39.7 % (42.0-52.0); HEMOGLOBIN 13.4 g/dl (14.0-17.9); LYMPHOCYTES # (AUTO) 1.1 X10'3 (1.1-4.8); LYMPHOCYTES % (AUTO) 14.2 % (21-51); MEAN CORPUSCULAR HEMOGLOBIN 31.1 PG (27.0-31.0); MEAN CORPUSCULAR HGB CONC 33.8 g/dL (33.0-36.5); MEAN CORPUSCULAR VOLUME 92.2 FL (78-98); MEAN PLATELET VOLUME 10.7 FL (7.4-10.4); MONOCYTES # (AUTO) 0.6 X10'3 (0-0.9); NEUTROPHILS # (AUTO) 5.9 X10'3 (1.8-7.7); NEUTROPHILS % (AUTO) 74.7 % (42-75); PLATELET COUNT 130 X10'3 (140-440); RED BLOOD COUNT 4.31 X10'6 (4.70-6.10); RED CELL DISTRIBUTION WIDTH 15.2 % (11.5-14.5); WHITE BLOOD COUNT 7.9 X10'3 (4.5-11.0)
[2019-07-01 05:53] LABS: PARTIAL THROMBOPLASTIN TIME 40 SECONDS (22-32)
[2019-07-01 05:55] LABS: ALBUMIN 2.9 G/DL (3.4-5.0); ANION GAP 8 (8-16); BLOOD UREA NITROGEN 17 MG/DL (7-18); BUN/CREATININE RATIO 19.8 (5.4-32.0); CALCIUM 8.6 MG/DL (8.5-10.1); CHLORIDE 104 MMOL/L (99-107); CREATININE 0.86 MG/DL (0.60-1.10); GLUCOSE 98 MG/DL (70-104); POTASSIUM 3.8 MMOL/L (3.5-5.1); SODIUM 138 MMOL/L (135-145); TOTAL CARBON DIOXIDE 26.3 MMOL/L (24-32); eGFR 86 ML/MIN
[2019-07-01 06:00] VITALS: BP 153/105
[2019-07-01 06:42] LABS: LARGE PLATELETS FEW; PLATELET ESTIMATE DECREASED
--- NOTE | 2019-07-01 06:55 | NUR ---
Patient in room PCU 3014. I have received report from Felisha WRIGHT and had the opportunity to ask questions and assume patient care.
[2019-07-01] MEDS: aspirin 81mg tablet.DR PO SCH (07:37)
[2019-07-01] MEDS: enoxaparin 40mg/0.4ml syringe SQ SCH (07:37)
[2019-07-01] MEDS ORDERED: amLODIPine 5mg tablet PO ONE (10:40)
[2019-07-01 11:00] VITALS: BP 115/79
[2019-07-01 15:00] VITALS: BP 121/74
[2019-07-01 18:00] VITALS: BP 174/88
--- NOTE | 2019-07-01 18:09 | NUR ---
Problems reprioritized. Patient report given, questions answered & plan of care reviewed with Felisha WRIGHT.
--- NOTE | 2019-07-01 18:15 | NUR ---
Patient in room PCU 3014. I have received report from Evy WRIGHT and had the opportunity to ask questions and assume patient care.
[2019-07-01] MEDS ORDERED: warfarin 3mg tablet PO ONE (21:00)
[2019-07-01 22:00] VITALS: BP 175/98
[2019-07-02 02:00] VITALS: BP 149/89
[2019-07-02 04:54] LABS: BASOPHILS % (AUTO) 0.5 % (0-1); EOSINOPHILS # (AUTO) 0.3 X10'3 (0-0.9); EOSINOPHILS % (AUTO) 3.5 % (0-6); HEMATOCRIT 39.1 % (42.0-52.0); HEMOGLOBIN 13.3 g/dl (14.0-17.9); LYMPHOCYTES # (AUTO) 1.3 X10'3 (1.1-4.8); LYMPHOCYTES % (AUTO) 14.2 % (21-51); MEAN CORPUSCULAR HEMOGLOBIN 31.5 PG (27.0-31.0); MEAN CORPUSCULAR VOLUME 92.8 FL (78-98); MEAN PLATELET VOLUME 11.1 FL (7.4-10.4); MONOCYTES # (AUTO) 0.8 X10'3 (0-0.9); MONOCYTES % (AUTO) 9.4 % (2-12); NEUTROPHILS # (AUTO) 6.4 X10'3 (1.8-7.7); NEUTROPHILS % (AUTO) 72.4 % (42-75); PLATELET COUNT 140 X10'3 (140-440); RED BLOOD COUNT 4.21 X10'6 (4.70-6.10); RED CELL DISTRIBUTION WIDTH 14.7 % (11.5-14.5); WHITE BLOOD COUNT 8.8 X10'3 (4.5-11.0)
[2019-07-02 04:58] LABS: PARTIAL THROMBOPLASTIN TIME 38 SECONDS (22-32)
[2019-07-02 05:14] LABS: ALBUMIN 3.1 G/DL (3.4-5.0); ANION GAP 9 (8-16); BLOOD UREA NITROGEN 17 MG/DL (7-18); BUN/CREATININE RATIO 18.3 (5.4-32.0); CALCIUM 8.7 MG/DL (8.5-10.1); CHLORIDE 102 MMOL/L (99-107); CREATININE 0.93 MG/DL (0.60-1.10); GLUCOSE 109 MG/DL (70-104); POTASSIUM 3.6 MMOL/L (3.5-5.1); SODIUM 137 MMOL/L (135-145); TOTAL CARBON DIOXIDE 26.5 MMOL/L (24-32); eGFR 78 ML/MIN
[2019-07-02 06:00] VITALS: BP 157/94
[2019-07-02 06:15] LABS: PLATELET ESTIMATE NORMAL
[2019-07-02 06:16] LABS: LARGE PLATELETS FEW
--- NOTE | 2019-07-02 06:25 | NUR ---
Problems reprioritized. Patient report given, questions answered & plan of care reviewed with Evy WRIGHT.
--- NOTE | 2019-07-02 06:37 | NUR ---
Patient in room PCU 3014. I have received report from Felisha WRIGHT and had the opportunity to ask questions and assume patient care.
[2019-07-02] MEDS: enoxaparin 40mg/0.4ml syringe SQ SCH (07:12)
[2019-07-02] MEDS: aspirin 81mg tablet.DR PO SCH (07:12)
[2019-07-02] MEDS ORDERED: amLODIPine 5mg tablet PO SCH (08:00)
--- NOTE | 2019-07-02 08:00 | NUR ---
Pt transferred from [facility] 3018B to [facility] 3019 d/t positive for MRSA in urine, dr. alonso and charge nurse aware Addendum: 07/02/19 at 1120 by Evy Ackerman RN wrong patient
[2019-07-02] MEDS: HYDROcodone/acetaminophen 5mg/325mg tablet PO PRN (08:12)
[2019-07-02 11:00] VITALS: BP 116/68
--- NOTE | 2019-07-02 13:47 | NUR ---
pt is scheduled to transfer to [facility] @ 2070, gave report to Alexandra PARK @ 1300, all questions answered
--- NOTE | 2019-07-02 14:20 | NUR ---
Pt transferred to [facility] @ 1410 in [facility] by shanel with two transporters, PIV dc'ed and clean dry dressing in place, Tele monitor 45 removed and returned, all belongings w/ pt at time of discharge.
[2019-07-02] MEDS ORDERED: warfarin 4mg tablet PO ONE (21:00)
== END 2019-07-02 14:41 | DRG 281 ==
LOC: ER 23:33 → ED HOLD 06-29 01:37 → PCU 3S 06-29 03:46
PROVIDERS: ADMIT Hospitalist; ATTEND Hospitalist
PROC: 3E02340 Introduction of Influenza Vaccine into Muscle, Percutaneous Approach (ICD-10-PCS; principal; 2019-06-29)
PROC: 3E0234Z Introduction of Serum, Toxoid and Vaccine into Muscle, Percutaneous Approach (ICD-10-PCS; 2019-06-29)
DX: I48.91 Unspecified atrial fibrillation (principal); I21.A1 Myocardial infarction type 2; I69.954 Hemiplegia and hemiparesis following unspecified cerebrovascular disease affecting left non-dominant side; I25.10 Atherosclerotic heart disease of native coronary artery without angina pectoris; M79.605 Pain in left leg; E78.00 Pure hypercholesterolemia, unspecified; I11.0 Hypertensive heart disease with heart failure; I50.9 Heart failure, unspecified; I73.9 Peripheral vascular disease, unspecified; W01.0XXA Fall on same level from slipping, tripping and stumbling without subsequent striking against object, initial encounter; Y93.01 Activity, walking, marching and hiking; M25.552 Pain in left hip; Z88.8 Allergy status to other drugs, medicaments and biological substances; Z23 Encounter for immunization; Z79.82 Long term (current) use of aspirin; I25.2 Old myocardial infarction; Z95.0 Presence of cardiac pacemaker; Z95.2 Presence of prosthetic heart valve; Z91.81 History of falling; Y92.89 Other specified places as the place of occurrence of the external cause; Y99.8 Other external cause status
CPT/HCPCS: 36415; 70450; 71045; 73080; 73502; 80048; 80053; 80061; 81001; 84484; 85025; 85610; 85730; 86885; 86900; 86901; 87081; 93005; 93306; 97110; 97116; 97162; 97530; 99285; G0378; J1650; Q2037